=== PATIENT | female | born 2005 | race Hispanic/Latino ===

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

== ENCOUNTER 2024-11-25 17:50 | Emergency (ER) | payer OTHER, SELFPAY ==
[2024-11-25 18:17] VITALS: BP 146/79; PULSE 79; RESP 20; TEMP 36.7; O2SAT 99
--- OUTSIDE RECORDS SUMMARY | 2024-11-25 19:11 | XMS_ITS | Clinical Summary ---
Author Organization [facility] Address [address] [place] [id number] Care Team Providers Care In Shop Service Technician Name Role Phone Unknown, Notinfile Primary Care Provider Unavail able Allergies No known active allergies Medications lidocaine (LIDODERM) 5 % Place 1 patch on the skin daily for 12 hours for 7 days Remove & discard patch within 12 hours or as directed by . 7 patch 06/06/2024 Active Social History Tobacco Use Types Packs/Day Years Used Date Smoking Tobacco: Never Assessed Personal Safety Answer Date Recorded Have you ever been in or are you currently in a harmful physical or emotional relationship or is someone making you feel afraid or unsafe? Denies 06/06/2024 Comments Unknown Sex and Gender Information Value Date Recorded Sex Assigned at Not on file Legal Sex Female 8:27 PM CDT Gender Identity Not on file Sexual Orientation Not on file Last Filed Vital Signs Vital Sign Reading Time Taken Comments Blood Pressure 123/83 06/06/2024 8:28 PM CDT Pulse 101 06/06/2024 8:28 PM CDT Temperature 36.7 C (98.1 F) 06/06/2024 8:28 PM CDT Respiratory Rate 18 06/06/2024 8:28 PM CDT Oxygen Saturation 100% 06/06/2024 8:28 PM CDT Inhaled Oxygen Concentration - - Weight - - Height 154.9 cm (5' 1) 06/06/2024 8:28 PM CDT Body Mass Index - - Plan of Treatment Health Maintenance Due Date Last Done Comments Depression Screening 2003 Hepatitis C Screening 2003 DTaP/Tdap/Td Vaccine (1 - Tdap) 12/24/2014 Varicella Vaccines (1 of 2 - 13+ 2-dose series) 12/24/2016 HPV Vaccines (1 - 3-dose series) 12/24/2018 Meningococcal B Vaccine (1 o f 2 - Standard) 2019 Hepatitis B Screening 12/24/2021 Regular Well Visit/Exam 18-64 12/24/2021 Influenza Vaccine (#1) 2024 Meningococcal Vaccine Aged Out No bobbi courtney eligible based on patient's age to complete this topic Pneumococcal vaccine <65 Aged Out No longer eligible based on patient's age to complete this topic Insurance [facility] Care Teams In Shop Service Technician Relationship Specialty Start Date End Date Unknown, Notinfile PCP - General 06/06/24
--- OUTSIDE RECORDS SUMMARY | 2024-11-25 19:11 | XMS_ITS | Clinical Summary ---
Author Organization [facility] Address [address] [place] [address] Care Team Providers Care Metal Base Blocker Name Role Phone Silvia Contreras FEEDER DRIVER-SPRAY BOOTH OPERATOR Primary Care Pro vider Source Comments [facility],non-owned Affiliates and Associated Physician Practices is amultiple site organization consisting of ambulatory clinics and hospital sitesin [place], [place], [place] and [place]. This disclosure is being madepursuant to the Care Everywhere program and may not contain all information available regarding this patient. Last updated 17.[facility] Allergies No known active allergies Medications * Be aware that medications may not be up to date on this document. Alwaysverify current medications with the patient. ibuprofen (MOTRIN) 400 MG tablet Take 1 (one) tablet by mouth every 6 hours as needed for Pain 20 tablet 2 Active Additional Information Patient not taking.Reported on 12/13/2022 lidocaine (LIDODERM) 5 % patch Apply 1 (one) patch to skin once daily 6 patch 2 Active Additional Information Patient not taking.Reported on 12/13/2022 ondansetron, disintegrating , (ZOFRAN ODT) 4 MG tablet Take 1 (one) tablet by mouth every 6 hours as needed for Nausea/Vomiting Allow tablet to dissolve on the tongue 20 tablet 2 Active Additional Information Patient not taking.Reported on 12/13/2022 acetaminophen (TYLENOL) 500 MG tablet Take 1 (one) tablet by mouth every 4 hours as needed for Fever or Pain Maximum allowable Acetaminophen amount = 4 Grams (4000 mg) / 24 hours. 20 tablet Active Additional Information Patient not taking.Reported on 12/13/2022 Social History Tobacco Use Types Packs/Day Years Used Date Smoking Tobacco: Never Passive Smoke Exposure: Never Smokeless Tobacco: Never Tobacco Cessation:Counseling Given: Not Answered Alcohol Use Standard Drinks/Week Comments Never 0 (1 standard drink = 0.6 oz pur e alcohol) AUDIT-C Answer Date Recorded Q1: How often do you have a drink containing alc ohol? Never 12/13/2022 Average Number of Drinks Not on file 023 Frequency of Binge Drinking Not on file 08/2022 Comments No Sex and Gender Information Value Date Recorded Sex Assigned at Not on file Legal Sex Female 6:27 PM SUSTAINABLE DEVELOPMENT POLICY ANALYST Gender Identity Not on file Sexual Orientation Not on file Last Filed Vital Signs Vital Sign Reading Time Taken Comments Blood Pressure 127/71 12/13/2022 7:45 PM SUSTAINABLE DEVELOPMENT POLICY ANALYST Pulse 121 12/13/2022 8:10 PM SUSTAINABLE DEVELOPMENT POLICY ANALYST Temperature 37.8 C (100 F) 12/13/2022 8:10 PM SUSTAINABLE DEVELOPMENT POLICY ANALYST Respiratory Rate 23 12/13/2022 8:10 PM SUSTAINABLE DEVELOPMENT POLICY ANALYST Oxygen Saturation 98% 12/13/2022 8:10 PM SUSTAINABLE DEVELOPMENT POLICY ANALYST Inhaled Oxygen Concentration - - Weight 62 kg (136 lb 11 oz) 08/14/2021 10:41 PM CDT Height 151 cm (4' 11.45) 11/13/2019 11:55 AM CD T Body Mass Index - - Plan of Treatment Health Maintenance Due Date Last Done Comments HIV SCREENING 12/24/2018 HPV VACCINE (1 - 3-dose series) 12/24/2018 CHLAMYDIA/GONORRHEA SCREENING 2019 MENINGOCOCCAL (Group B) VACCINE SHARED DECISION-MAKING (1 of 2 - Standard) 2019 HEPATITIS C SCREENING 12/20/2021 DTAP/TDAP/TD VACCINES (1 - Tdap) 12/24/2022 HEPATITIS B VACCINE (1 of 3 - 19+ 3-dose series) 12/24/2022 DEPRESSION SCREENING 02/07/2024 COVID-19 VACCINE ( 2023- season) 2024 INFLUENZA VACCINE (#1) 2024 2, 01/16/2020, 01/07/2019, Additional history exists ZOSTER VACCINE (1 of 2) 12/24/2053 HIB VACCINE Aged Out No longer eligi ble based on patient's age to complete this topic MENINGOCOCCAL GROUPS A/C/Y/W VACCINE Aged Out No longer eligible based on patient's age to complete this topic PNEUMOCOCCAL VACCINE Aged Out No long er eligible based on patient's age to complete this topic Insurance [place] - [place] [employer] HE[employer]AN [place]ICAID [place] Care Teams Metal Base Blocker Relationship Specialty Start Date End Date Silvia Contreras APRN-LEYDI [address] [place] [phone] PCP - General Nurse Practitioner 03/25/16
[2024-11-25 21:40] LABS: BEDSIDEPREGUCG Negative (Negative)
[2024-11-25 21:46] LABS: Hematocrit 43.3 % (37.0-47.0); Hemoglobin 14.5 g/dL (12.0-15.0); Immature Granulocyte Percent A 0.5 % (0-0.5); Lymphocytes Absolute Auto 1.62 K/mm3 (0.9-3.2); Mean Corpuscular HGB Conc 33.5 g/dl (32-36); Mean Corpuscular Hemoglobin 31.2 pg (26-34); Mean Corpuscular Volume 93.1 fl (80-100); Nucleated Red Blood Cells Absolute Auto 0.000 K/mm3 (0.0-0.012); Nucleated Red Blood Cells Perc 0.0 % (0.0-0.2); Platelet Count Result 384 k/mm3 (150-375); Red Blood Count 4.65 M/mm3 (4.2-5.4); White Blood Count 9.3 K/mm3 (4.5-10.0)
[2024-11-25 21:59] LABS: Add Urine Microscopic? YES; Appearance Urine Turbid (Clear); Glucose Urine UA Negative (Negative); Leukocyte Esterase Ur 1+ LEU/UL (Negative); Need Manual Microscopic Reviewed; Nitrate Urine Negative (Negative); Non Pathogenic Casts 0-2; Specific Grav Ur 1.034 (1.001-1.035)
[2024-11-25 22:06] LABS: Alanine Aminotransferase 18 U/L (6-35); Albumin Level 4.9 g/dL (3.5-5.1); Alkaline Phosphatase 90 U/L (38-126); Anion Gap 15 mmol/L (4-12); Aspartate Amino Transferase 29 U/L (14-36); Bilirubin,Total 1.8 mg/dL (0.2-1.3); Blood Urea Nitrogen 9 mg/dL (7-17); Calcium 9.0 mg/dL (8.4-10.2); Carbon Dioxide 20 mmol/L (22-30); Chloride 103 mmol/L (98-107); Estimated CRCL calculation 96 ml/min; Estimated Glomerular Filt Rate > 60; Glucose 98 mg/dL (65-110); Potassium 3.4 mmol/L (3.4-5.0); Sodium 138 mmol/L (137-145); Total Protein 9.1 g/dL (6.3-8.2)
--- OUTSIDE RECORDS SUMMARY | 2024-11-25 22:32 | XMS_ITS | Clinical Summary ---
Author Organization [facility] Address [address] [place] [phone] Care Team Providers Care Telecommunications Operator Name Role Phone Unknown, Notinfile Primary Care [...] patient's age to complete this topic Insurance [facility] Care Teams Telecommunications Operator Relationship Specialty Start Date End Date Unknown, Notinfile PCP - General 06/06/24
--- OUTSIDE RECORDS SUMMARY | 2024-11-25 22:32 | XMS_ITS | Clinical Summary ---
Author Organization [facility] Address [address] [place] [address] Care Team Providers Care Legal Project Manager Name Role Phone Silvia Contreras WAREHOUSE MATERIAL HANDLER-TIMBER SELECTOR Primary Care Pro vider Source Comments [facility] [employer],non-owned Affiliates and Associated Physician Practices is amultiple site organization consisting of ambulatory clinics and hospital sitesin [place], [place], [place] and [place]. This disclosure is being madepursuant to the Care Everywhere program and may not contain all information available regarding this patient. Last updated 17.[facility] Allergies No known active allergies Medications * [...] on file Legal Sex Female 6:27 PM VOCATIONAL ADVISER Gender Identity Not on file Sexual Orientation Not on file Last Filed Vital Signs Vital Sign Reading Time Taken Comments Blood Pressure 127/71 12/13/2022 7:45 PM VOCATIONAL ADVISER Pulse 121 12/13/2022 8:10 PM VOCATIONAL ADVISER Temperature 37.8 C (100 F) 12/13/2022 8:10 PM VOCATIONAL ADVISER Respiratory Rate 23 12/13/2022 8:10 PM VOCATIONAL ADVISER Oxygen Saturation 98% 12/13/2022 8:10 PM VOCATIONAL ADVISER Inhaled Oxygen Concentration - - Weight 62 [...] complete this topic Insurance [place] [employer] [place]ICAID - [place] Care Teams Legal Project Manager Relationship Specialty Start Date End Date Silvia Contreras APRN-LEYDI [address] [place] [phone] PCP - General Nurse Practitioner 03/25/16
--- NOTE | 2024-11-25 23:20 | ED.FEMALEGU ---
HPI - Female Genitourinary General Chief complaint: Vaginal Bleeding Stated complaint: vaginal bleeding X8 days Time Seen by Provider: 11/25/24 21:34 Source: patient Mode of arrival: ambulatory Limitations: no limitations History of Present Illness HPI Narrative: This is a 18-year-old female that presents to the emergency department for heavy menstrual cycle. Reports she has been bleeding for the last week. She has an implant so has fairly irregular periods. She has not had 1 in quite some time. Reports some pelvic cramping. Also reports dysuria. Denies fevers. Related Data Allergies Allergy/AdvReac Type Severity Reaction Status Date / Time No Known Allergies Allergy Verified 11/25/24 18:20 Review of Systems Review of Systems: All systems reviewed & are unremarkable except as noted in HPI and below PMFSH Social History Social History Gender identity (if verbalized by the patient): Female Exam Narrative: GENERAL: Well-appearing, well-nourished, and in no acute distress. HEAD: Normocephalic, atraumatic. EYES: EOMI. CHEST: Clear to auscultation. No respiratory distress. No wheezes rales or rhonchi HEART: Regular rate and rhythm. No murmur heard. Normal peripheral pulses. ABDOMEN: Soft, nontender, nondistended, normal active bowel sounds. EXTREMITIES: Normal range of motion. No edema. SKIN: Warm, dry, no rash. NEURO: No focal deficits. Alert and oriented x3. PSYCH: Normal mood and affect Course Vital Signs Vital signs: Vital Signs Temperature 98.1 F 11/25/24 18:17 Pulse Rate 79 11/25/24 18:17 Respiratory Rate 20 11/25/24 18:17 Blood Pressure 146/79 H 11/25/24 18:17 Pulse Oximetry 99 11/25/24 18:17 Oxygen Delivery Room Air 11/25/24 18:17 Temperature 98.1 F 11/25/24 18:17 Pulse Rate 79 11/25/24 18:17 Respiratory Rate 20 11/25/24 18:17 Blood Pressure 146/79 H 11/25/24 18:17 Pulse Oximetry 99 11/25/24 18:17 Oxygen Delivery Room Air 11/25/24 18:17 MDM - Female Genitourinary MDM Narrative Medical decision making narrative: Patient presents to the emergency department for abnormal uterine bleeding. Her vitals are stable. Hemoglobin is normal. Metabolic panel with some evidence of dehydration, patient hydrated with a L of IV fluids. UA with 21-50 white blood cells, patient does endorse dysuria. Given first dose of antibiotics IV. Will be continued on oral antibiotic. test negative. She is to follow up with primary provider. She was given warnings to return Differential Diagnosis Differential diagnosis: Likely urinary tract infection, dysmenorrhea and other (Dehydration, anemia) Lab Data Attestation: I reviewed the patient's lab results. 11/25/24 21:34 11/25/24 21:34 Labs: Lab Results 11/25/24 11/25/24 Range/Units 21:34 21:37 WBC 9.3 (4.5-10.0) K/mm3 RBC 4.65 (4.2-5.4) M/mm3 Hgb 14.5 (12.0-15.0) g/dL Hct 43.3 (37.0-47.0) % MCV 93.1 (80-100) fl MCH 31.2 (26-34) pg MCHC 33.5 (32-36) g/dl RDW 12.1 (11.5-14.5) % Plt Count 384 H (150-375) k/mm3 MPV 9.4 (7.4-10.4) fl Immature Gran % (Auto) 0.5 (0-0.5) % Neut % (Auto) 77.5 H (45.5-73.1) % Lymph % (Auto) 17.5 L (18.3-44.2) % [place] % (Auto) 4.3 (2.6-8.5) % Eos % (Auto) 0.0 (0-4.4) % Baso % (Auto) 0.2 (0.2-1.2) % Lymph # (Auto) 1.62 (0.9-3.2) K/mm3 [place] # (Auto) 0.4 (0.1-0.6) K/mm3 Eos # (Auto) 0.0 (0-0.3) K/mm3 Baso # (Auto) 0.0 (0.0-0.1) K/mm3 Abs Immat Gran (auto) 0.05 H (0.00-0.031) K/mm3 Absolute Neuts (auto) 7.2 H (1.3-6.7) K/mm3 Absolute Nucleated RBC 0.000 (0.0-0.012) K/mm3 Nucleated RBC % 0.0 (0.0-0.2) % Sodium 138 (137-145) mmol/L Potassium 3.4 (3.4-5.0) mmol/L Chloride 103 (98-107) mmol/L Carbon Dioxide 20 L (22-30) mmol/L Anion Gap 15 H (4-12) mmol/L BUN 9 (7-17) mg/dL Creatinine 0.70 (0.7-1.0) mg/dL Estim Creat Clear Calc 96 ml/min Estimated GFR > 60 (59 - ) Glucose 98 (65-110) mg/dL Calcium 9.0 (8.4-10.2) mg/dL Total Bilirubin 1.8 H (0.2-1.3) mg/dL AST 29 (14-36) U/L ALT 18 (6-35) U/L Alkaline Phosphatase 90 (38-126) U/L Total Protein 9.1 H (6.3-8.2) g/dL Albumin 4.9 (3.5-5.1) g/dL Urine Color Yellow (Yellow) Urine Appearance Turbid H (Clear) Urine pH 5.5 (5.0-9.0) Ur Specific [place] 1.034 (1.001-1.035) Urine Protein 1+ H (Negative) mg/dL Urine Glucose (UA) Negative (Negative) mg/dL Urine Ketones 4+ H (Negative) mg/dL Ur Blood (Man) 2+ H (Negative) Urine Nitrate Negative (Negative) Urine Bilirubin Negative (Negative) Urine Urobilinogen 1.0 (<2.0) mg/dL Add Ur Microanalysis Reviewed Leukocyte Esterase Rfl 1+ H (Negative) OLVIN/UL Urine RBC 3-5 H (0-2) /hpf Urine WBC 21-50 H (0-3) /hpf Ur Squamous Epith Cells Many H (Few) /hpf Urine Bacteria 1+ H /hpf Urine Casts 0-2 POC Urine HCG, Qual Negative (Negative) Critical Care Time Critical Care Time Critical Care Time: No Discharge Plan Discharge Clinical Impression: Dysfunctional uterine bleeding, Acute UTI Patient Disposition: Home Condition: Stable Instructions: Antibiotic Form, Abnormal (Dysfunctional) Uterine Bleeding (ED), Urinary Tract Infection in Women (ED) Additional Instructions: Return to the ER if you experience fever, abdominal pain with nausea and vomiting, you are unable to keep down liquids or solids, or any other symptoms that are concerning to you Remain well hydrated. Take oral antibiotic as prescribed Follow up with your primary care doctor Patient Language: Cameroonian Prescriptions: New cephalexin 500 mg tablet 500 mg PO Q12H 5 Days Qty: 10 0RF No Action ketotifen fumarate [Zaditor] 0.025 % (0.035 %) drops 1 drop EACH EYE BID PRN (Reason: allergy symptoms) 5 Days Qty: 5 0RF Rx Instructions: administer at least 8 hours apart Follow-up/Referrals: Diane,BENITO Vega [Primary Care Provider]
[2024-11-25] MEDS: cefTRIAXone 1 GM in SODIUM CHLORIDE 0.9% IV 50 ML 100 ML IVPB (23:26)
[2024-11-25] MEDS: LACTATED RINGERS 1,000 ML 999 ML IV CONT (23:27)
[2024-11-26 00:28] VITALS: BP 122/69; PULSE 76; RESP 18; O2SAT 100
== END 2024-11-26 00:28 | disposition home or self-care (01) ==
PROVIDERS: Student in an Organized Health Care Education/Training Program; Emergency Provider Physician Assistant; PCP Registered Nurse
DX: N93.8 Other specified abnormal uterine and vaginal bleeding (principal); N39.0 Urinary tract infection, site not specified
CPT/HCPCS: 36415; 80053; 81001; 81025; 85025; 96365; 99284; J0696; J7120